=== PATIENT | male | born 1950 | race Caucasian/White ===

== ENCOUNTER → 2016-11-25 | Outpatient (CLI) | payer BC | END | disposition home or self-care (01) | LOC: RAD.S 07:45 | DX: R10.11 Right upper quadrant pain (principal); K80.20 Calculus of gallbladder without cholecystitis without obstruction; R94.8 Abnormal results of function studies of other organs and systems ==

== ENCOUNTER 2016-12-26 06:59 | Day surgery (SDC) | payer BC ==
[~2016-12-26] VITALS: Ht 175.3 cm; Wt 123.5 kg
--- NOTE | 2017-01-19 08:57 | OR ---
ADMIT: 12/26/2016 RM/LOC: [facility] MR#: [id number] [id number] NAW[facility] [place] [address] [place] [address] Operative/Delivery Room Report SEX: M AGE: 66 : 1950 SURGERY DATE: 12/26/2016 SURGEON: Josh Ortiz MD MARINE DESIGN ENGINEER: GE Rhodes PRE PROCEDURE DIAGNOSIS: Chronic cholecystitis. POSTPROCEDURE DIAGNOSIS: Chronic cholecystitis. PROCEDURES: Laparoscopic cholecystectomy and intraoperative cholangiogram. INDICATIONS: The patient is a 66-year-old, who presents with signs, symptoms, and radiographic evidence consistent with chronic cholecystitis who presents for laparoscopic cholecystectomy. FINDINGS: The patient was taken to the operating room. General endotracheal anesthesia was induced. The patient's abdomen was prepped and draped in normal sterile fashion. The case was begun by making a transverse, supraumbilical 5 mm skin incision using #11 blade. A retractable 5 mm port was placed within the abdomen. The abdomen was insufflated with CO2 to an intra-abdominal pressure of 15 mmHg. A camera was placed showing no bowel or vascular injury. A midepigastric 11 mm port and 2 right upper quadrant 5 mm ports were placed under direct vision. The case begun by grabbing the fundus of the gallbladder using atraumatic clamps. Omental adhesions to the gallbladder body and infundibulum were taken down with electrocautery and [place] instrument. A second atraumatic clamp was then used to grasp the infundibulum. A [place] instrument with electrocautery was used to dissect out first the cystic artery, which we applied 2 clips proximally, 1 distally and the artery was severed. We then dissected out a very large, dilated- appearing cystic duct. I placed a proximal clip on the duct, the duct was cut in half. A cholangiogram catheter was placed. There were no filling defects with easy contrast flow into the duodenum. There was intrahepatic ductal filling of contrast and in fact the common duct did not appear to be dilated. I removed the cholangiogram catheter, severed the remainder of the duct and then used an Endoloop to close the cystic duct stump. The remainder of dissection was then carried out using electrocautery from a posterior-to- ADMIT: 12/26/2016 RM/LOC: [facility] MR#: [id number] [address] NAW[place]O [address] [place] [address] Operative/Delivery Room Report SEX: M AGE: 66 : 1950 anterior fashion, removing the gallbladder from liver bed. The gallbladder was placed in EndoCatch bag and brought out through the midepigastric port site. On reexamination of the operative site, there was no bleeding, no bile leakage. Our clips were in good position. The air was then irrigated and suctioned out. 0.5% Marcaine was injected subdermally and subfascially for postoperative analgesia. The midepigastric fascial incision was closed with [id number] 0 Polysorb suture passer. The air was desufflated. The port sites removed. The skin sites were closed with interrupted 4-0 Vicryl subcuticular skin stitches. Wounds were cleaned and dried. Steri-Strips and Tegaderms were applied over the top. Needle, sponge, and instrument counts were correct at the end of the case. The patient was extubated, went to recovery room in good condition. Josh Ortiz MD/ caren JOB #: [id number] CC: Josh Ortiz, Attending Physician Rashel Badillo, Family Physician
== END 2016-12-26 14:30 | disposition home or self-care (01) ==
LOC: SSS 06:59
PROC: 0FT44ZZ Resection of Gallbladder, Percutaneous Endoscopic Approach (ICD-10-PCS; principal; 2016-12-26)
PROC: BF121ZZ Fluoroscopy of Gallbladder using Low Osmolar Contrast (ICD-10-PCS; principal; 2016-12-26)
DX: K80.10 Calculus of gallbladder with chronic cholecystitis without obstruction (principal); I10 Essential (primary) hypertension; I48.91 Unspecified atrial fibrillation; G47.30 Sleep apnea, unspecified; Z85.46 Personal history of malignant neoplasm of prostate; Z88.8 Allergy status to other drugs, medicaments and biological substances; Z98.890 Other specified postprocedural states